=== PATIENT | male | born 1965 | race Hispanic/Latino ===

== ENCOUNTER 2018-08-05 09:09 | Day surgery (SDC) | payer OTHER ==
[~2018-08-05 09:09] MED LIST: DECADRON ONE; DILAUDID ONE; DIPRIVAN 10 MG/ML IV ONE; XYLOCAINE MPF 2% ONE; ZOFRAN ONE
[2018-08-05] MEDS ORDERED: ANCEF/STERILE WATER 2 GM/20 ML IV NR (10:00)
[2018-08-05] MEDS ORDERED: LACTATED RINGERS 1,000 ML IV SCH ×2 (10:00→12:00)
[2018-08-05] MEDS ORDERED: DIPRIVAN 10 MG/ML IV ONE (10:53)
[2018-08-05] MEDS ORDERED: WATER FOR IRRIG STERILE IR ONE ×2 (11:04)
[2018-08-05] MEDS ORDERED: NEO SYNEPHRINE ONE (11:11)
[2018-08-05] MEDS ORDERED: DILAUDID IV PRN (11:21)
[2018-08-05] MEDS ORDERED: ZOFRAN IV PRN (11:21)
--- NOTE | 2018-08-05 11:21 | Anesthesia Day of Surgery ---
Anesthesia Day of Surgery - Day of Surgery Patient Examined: Yes Patient H&P Reviewed: Yes Patient is NPO: Yes
--- NOTE | 2018-08-05 11:21 | Anesthesia Consultation ---
Anesthesia Consult and Med Hx Date of service: 08/05/18 - Airway Anesthetic Teeth Evaluation: Poor ROM Head & Neck: Adequate Mental/Hyoid Distance: Adequate Mallampati Class: Class I Intubation Access Assessment: Good - Pulmonary Exam CTA: Yes - Cardiac Exam Cardiac Exam: RRR - Pre-Operative Health Status ASA Pre-Surgery Classification: ASA2 Proposed Anesthetic Plan: General
--- NOTE | 2018-08-05 11:57 | Fluoroscopy Report ---
FLUOROSCOPY RETROGRADE UROGRAPHY: FLUOROSCOPY URETER/NEPHROSTOMY DILATATION RIGHT: HISTORY: Right ureteral stone. FINDINGS: Fluoroscopy was provided by radiology during retrograde urography by the urologist. 5 fluoroscopic images were captured. The images demonstrate a small filling defect in the distal right ureter consistent with a stone. Subsequent images demonstrate balloon dilatation of the distal right ureter and placement of a right ureteral stent. Right ureteroscopy was performed per the operative notes. Right renal stone was apparently removed. Please correlate with the procedural report. Note images of the left collecting system were saved. IMPRESSION: Right ureteral stone removal. Right ureteral stent placement.
--- NOTE | 2018-08-05 11:58 | Post Operative Note ---
Date of procedure: 08/05/18 Pre-op diagnosis: r ureteral stone Post-op diagnosis: same Findings: as above Procedure: cysto ureteroscopy j stent stone extr Anesthesia: GETA Surgeon: LOCO HOPKINS Estimated blood loss: none Pathology: list (stone) Specimen disposition: given to patient/family Condition: stable Disposition: PACU
--- NOTE | 2018-08-05 11:59 | Discharge Summary ---
Short Stay Discharge Plan Activity: other (no strainign ) Weight Bearing Status: Full Weight Bearing Diet: low cholesterol, low salt Special Instructions: other (inc fluids ) Durable Medical Equipment Needed Upon Discharge: other (stent ) Follow up with: PRIMARY CAREMD [Primary Care Provider] - 7 Days LOCO HOPKINS MD [Staff Physician] - 7 Days
--- NOTE | 2018-08-05 12:38 | Operative Report ---
PREOPERATIVE DIAGNOSIS: Impacted right distal ureteral stone. POSTOPERATIVE DIAGNOSIS: Impacted right distal ureteral stone. PROCEDURES: Cystoscopy, right retrograde, right ureteroscopy and ureteroscopic stone extraction. SURGEON: Jay Conn MD ANESTHESIA: General. FINDINGS: This is a gentleman with intermittent pain in the right flank now presents for treatment. His stone has not moved. It is 4-5 mm in distal ureter. DESCRIPTION OF PROCEDURE: The patient was brought to the operating room and placed on the operating table. Following induction of anesthesia, he was placed in lithotomy position and prepped and draped in usual sterile fashion. Cystourethroscopy showed the stone at the UVJ with mild inflammation. Retrograde revealed that as well. Wire eventually coiled in the kidney was very, very tight. Balloon dilatation was carried out. Stone was extracted. The patient tolerated the procedure well. Stone will be on the chart. A double J coiled in the kidney with the string taped to the penis. The patient tolerated the procedure well and brought to recovery in stable condition. JOB# [id number] GALI/SANA
[2018-08-05 13:54] VITALS: BP 118/64
--- NOTE | 2018-08-05 16:22 | Post Anesthesia Evaluation ---
- Post Anesthesia Evaluation Patient Participated: Yes Airway Patent: Yes Stable Respiratory Function: Yes Nausea/Vomiting: No Temp > 96.8F: Yes Pain Manageable: Yes Adequeate Hydration: Yes Anesthesia Complications: No
== END 2018-08-05 14:46 | disposition home or self-care (01) ==
LOC: OR 09:09
PROVIDERS: ATTEND Urology
DX: N20.1 Calculus of ureter (principal); F17.200 Nicotine dependence, unspecified, uncomplicated; Z79.899 Other long term (current) drug therapy; Z98.890 Other specified postprocedural states
CPT/HCPCS: 52352; 74420; 74485; A4217; C1726; C1758; C1769; C2617; J0690; J1100; J1170; J2370; J2405; J2704; J7120; Q9967